=== PATIENT | female | born 1995 | race Caucasian/White ===

== ENCOUNTER → 2023-04-18 16:04 | Outpatient (REF) | payer BC, SELFPAY | LOC: PNTC 16:04 | PROVIDERS: ATTENDING PHYSICIAN Obstetrics & Gynecology | DX: O99.210 Obesity complicating pregnancy, unspecified trimester (principal) | CPT/HCPCS: 76816 ==

== ENCOUNTER → 2023-05-16 16:13 | Outpatient (REF) | payer BC, SELFPAY | LOC: PNTC 16:13 | PROVIDERS: ATTENDING PHYSICIAN Obstetrics & Gynecology | DX: O99.210 Obesity complicating pregnancy, unspecified trimester (principal) | CPT/HCPCS: 76811 ==

== ENCOUNTER → 2023-06-27 09:12 | Outpatient (REF) | payer BC, SELFPAY | LOC: PNTC 09:12 | PROVIDERS: ATTENDING PHYSICIAN Obstetrics & Gynecology | DX: O99.210 Obesity complicating pregnancy, unspecified trimester (principal) | CPT/HCPCS: 76816 ==

== ENCOUNTER → 2023-08-04 08:50 | Outpatient (REF) | payer BC, SELFPAY | LOC: PNTC 08:50 | PROVIDERS: ATTENDING PHYSICIAN Obstetrics & Gynecology | DX: O99.210 Obesity complicating pregnancy, unspecified trimester (principal) | CPT/HCPCS: 76816 ==

== ENCOUNTER → 2023-08-18 08:48 | Outpatient (REF) | payer BC, SELFPAY | LOC: PNTC 08:48 | PROVIDERS: ATTENDING PHYSICIAN Obstetrics & Gynecology | DX: O99.210 Obesity complicating pregnancy, unspecified trimester (principal) | CPT/HCPCS: 59025; 76815 ==

== ENCOUNTER → 2023-08-25 08:55 | Outpatient (REF) | payer BC, SELFPAY | LOC: PNTC 08:55 | PROVIDERS: ATTENDING PHYSICIAN Obstetrics & Gynecology | DX: O99.210 Obesity complicating pregnancy, unspecified trimester (principal) | CPT/HCPCS: 59025; 76815 ==

== ENCOUNTER 2023-09-01 07:51 | Observation (INO) | payer BC, SELFPAY ==
[2023-09-01 08:24] LABS: Hematocrit 30.9 % (37.0-47.0); Hemoglobin 10.4 g/dL (12.0-16.0); Mean Corp Hgb Conc. 33.7 g/dL (33.0-37.0); Mean Corpuscular Hgb 28.9 pg (27.0-31.0); Mean Corpuscular Volume 85.8 fL (81.0-99.0); Mean Platelet Volume 11.4 fL (7.4-10.4); Platelet Count 181 10^3/uL (130-400); Red Cell Dist. Width 13.4 % (11.5-14.5); White Blood Cell Count 10.3 10^3/uL (4.8-10.8)
[2023-09-01 08:36] LABS: ALT (SGPT) 17 U/L (0-35); AST (SGOT) 23 U/L (14-36); Albumin 3.4 g/dl (3.5-5.0); Alkaline Phosphatase 76 U/L (38-126); Blood Urea Nitrogen 11 mg/dl (7-17); Calcium 9.3 mg/dl (8.4-10.2); Carbon Dioxide 23 mmol/L (22-30); Chloride 107 mmol/L (98-107); Glucose 85 mg/dl (70-99); Potassium 3.8 mmol/L (3.5-5.1); Sodium 134 mmol/L (135-145); Total Bilirubin 0.5 mg/dl (0.2-1.3); Total Protein 6.1 g/dl (6.3-8.2); eGFR > 60.00
[2023-09-01 08:57] LABS: Protein/creatinine Ratio 0.3; Urine Protein 18 mg/dl
[2023-09-01 09:04] VITALS: BP 139/74; BMI 41.6
== END 2023-09-01 09:30 | disposition home or self-care (01) ==
LOC: PNTC-IN 07:51
PROVIDERS: ADMITTING PHYSICIAN Obstetrics & Gynecology; ATTENDING PHYSICIAN Obstetrics & Gynecology
DX: O14.03 Mild to moderate pre-eclampsia, third trimester (principal); O32.1XX0 Maternal care for breech presentation, not applicable or unspecified; Z3A.36 36 weeks gestation of pregnancy
CPT/HCPCS: 59025; 76816; 80053; 82570; 84156; 85027; G0378

== ENCOUNTER → 2023-09-07 09:52 | Outpatient (REF) | payer BC, SELFPAY | LOC: PNTC 09:52 | PROVIDERS: ATTENDING PHYSICIAN Obstetrics & Gynecology | DX: O99.210 Obesity complicating pregnancy, unspecified trimester (principal) | CPT/HCPCS: 59025 ==

== ENCOUNTER 2023-09-09 08:41 | Inpatient (IN) | payer BC, SELFPAY ==
[2023-09-09 08:45] VITALS: BP 137/81; BMI 41.8
[2023-09-09] MEDS: LR 1000 IV ×2 (09:15→11:23)
[2023-09-09] MEDS: BRETHINE 250 MCG SC ×2 (09:45→13:12)
[2023-09-09 10:04] LABS: % Basophils 0.3 % (0-2); % Eosinophils 1.1 % (0-6); % Immature Granulocytes 1.6 % (0-0.5); % Lymphocytes 19.9 % (20.5-51.1); % Monocytes 8.8 % (1.7-9.3); % Neutrophils 68.3 % (42.2-75.2); Absolute Eosinophils 0.1 10^3/uL (0-0.7); Absolute Immature Granulocytes 0.2 10^3/uL (0-0.05); Absolute Lymphocytes 2.3 10^3/uL (1.2-3.4); Absolute Neutrophils 7.8 10^3/uL (1.4-6.5); Hematocrit 32.2 % (37.0-47.0); Hemoglobin 10.3 g/dL (12.0-16.0); Mean Corpuscular Hgb 28.5 pg (27.0-31.0); Mean Corpuscular Volume 89.2 fL (81.0-99.0); Mean Platelet Volume 11.7 fL (7.4-10.4); Nucleated Red Blood Cells % 0 %; Platelet Count 168 10^3/uL (130-400); Red Blood Cell Count 3.61 10^6/uL (4.20-5.40); Red Cell Dist. Width 13.4 % (11.5-14.5); White Blood Cell Count 11.5 10^3/uL (4.8-10.8)
[2023-09-09] MEDS: PITOCIN 30 UNITS/NSS 500 ML IV (14:30)
[2023-09-09] MEDS: TORADOL 15 MG IV (19:56)
[2023-09-10] MEDS: TORADOL 15 MG IV ×3 (02:09→14:09)
[2023-09-10 05:20] LABS: Hematocrit 25.8 % (37.0-47.0); Hemoglobin 8.7 g/dL (12.0-16.0); Mean Corp Hgb Conc. 33.7 g/dL (33.0-37.0); Mean Corpuscular Hgb 29.2 pg (27.0-31.0); Mean Corpuscular Volume 86.6 fL (81.0-99.0); Mean Platelet Volume 11.5 fL (7.4-10.4); Platelet Count 169 10^3/uL (130-400); Red Blood Cell Count 2.98 10^6/uL (4.20-5.40); Red Cell Dist. Width 13.5 % (11.5-14.5); White Blood Cell Count 13.8 10^3/uL (4.8-10.8)
[2023-09-10] MEDS: SENOKOT-S 1 TABLET PO (09:01)
[2023-09-10] MEDS: FEOSOL 325 MG PO (14:09)
--- NOTE | 2023-09-10 18:18 | W.PN.ANS.POP ---
Anesthesia Post Operative
- Anesthesia Post Op Note
Vital Signs Stable-See Nursing Note: Yes
Airway Patent: Yes
Adequate Pain Control: Yes
Change in Mental Status: No
Current Postoperative Nausea & Vomiting: No
Anesthesia Complications: No
General Anesthetic Recall: No
Unplanned Admission: No
Post Op Hydration Adequate: Yes
[2023-09-10] MEDS: BENADRYL 25 MG PO (19:27)
[2023-09-10] MEDS: TYLENOL 650 MG PO (19:27)
[2023-09-10] MEDS: MOTRIN 600 MG PO (20:22)
[2023-09-11] MEDS: TYLENOL 650 MG PO ×4 (00:56→20:28)
[2023-09-11] MEDS: MOTRIN 600 MG PO ×3 (02:22→15:54)
[2023-09-11] MEDS: SENOKOT-S 1 TABLET PO (08:10)
[2023-09-11] MEDS: FEOSOL 325 MG PO (08:10)
[2023-09-12] MEDS: TYLENOL 650 MG PO ×2 (01:36→07:57)
[2023-09-12] MEDS: MOTRIN 600 MG PO ×2 (01:37→07:55)
[2023-09-12] MEDS: FEOSOL 325 MG PO (07:56)
--- NOTE | 2023-09-12 09:17 | W.DS.TRANS ---
DC Summary - [employer]
-
Discharge Instructions:
Discharge Diagnosis/Procedures primary cs, failed version
Instructions:
Stand-Alone Forms: LDRP Delivery
Changes to Home Medications: No
Discharge Medications:
DC Medications w/original date entered in [employer]
vitamin-ferrous fumarate 28 mg iron-folic acid 800 mcg tablet ( Tablet) 1 tab PO DAILY Supplement 09/09/23
ibuprofen 600 mg tablet 600 mg PO [id number] PRN cramps #90 tabs 09/12/23
Home Medication Changes
Pending Results: No
Total time spent discharging patient (in min): 20
[2023-09-13 12:35] LABS: Syphilis/T. pallidum Ab Reflex Negative (Negative)
== END 2023-09-12 13:18 | disposition home or self-care (01) | DRG 788 ==
LOC: LDRP 08:41
PROVIDERS: ADMITTING PHYSICIAN Obstetrics & Gynecology
PROC: 10S0XZZ Reposition Products of Conception, External Approach (ICD-10-PCS; 2023-09-09)
PROC: 10D00Z1 Extraction of Products of Conception, Low, Open Approach (ICD-10-PCS; 2023-09-09)
DX: O32.1XX0 Maternal care for breech presentation, not applicable or unspecified (principal); Z3A.37 37 weeks gestation of pregnancy; Z37.0 Single live birth; O14.04 Mild to moderate pre-eclampsia, complicating childbirth; O99.344 Other mental disorders complicating childbirth; F41.9 Anxiety disorder, unspecified; F32.A Depression, unspecified; O99.214 Obesity complicating childbirth
CPT/HCPCS: 88307; 85025; 85027; 86780; 86850; 86900; 86901